=== PATIENT | male | born 1960 | race Two or more races ===

== ENCOUNTER 2023-01-06 18:09 | Emergency (ER) | payer OTHER ==
[~2023-01-06] VITALS: Ht 180.3 cm; Wt 79.8 kg
[2023-01-06] MEDS ORDERED: OMEPRAZOLE MAGN20 MG PO (18:27)
[2023-01-06] MEDS ORDERED: METFORMIN HCL500 M3 (18:27)
[2023-01-06 19:49] LABS: HEMATOCRIT 40.7 % (39.0-48.0); HEMOGLOBIN 13.3 g/dL (13-16.00); MEAN CELL VOLUME 80.6 fL (80.0-100.00); MEAN CORPUSCULAR HEMOGLOBIN 26.4 pg (27.00-32.0); MEAN CORPUSCULAR HGB CONC 32.8 g/dl (32.0-36.0); PLATELET COUNT 208 K/uL (150-450); RED BLOOD COUNT 5.05 M/uL (4.00-6.00); RED CELL DISTRIBUTION WIDTH 17.4 % (11.5-14.5)
[2023-01-06 19:53] LABS: URINE APPEARANCE Clear; URINE BILIRRUBIN Negative (NEGATIVE); URINE BLOOD Negative; URINE COLOR Yellow; URINE GLUCOSE Negative (NEGATIVE); URINE LEUKOCYTE Negative; URINE NITRATE Negative; URINE PROTEIN 30 (NEGATIVE); URINE UROBILINOGEN 0.2 E.U./dl
[2023-01-06 19:57] LABS: URINE BACTERIA 11.3 uL (0.0-1933); URINE EPITHELIAL CELLS 2.1 uL (0.0-38.8); URINE RBC 7.6 uL (0.0-20.8); URINE WBC 7.5 uL (0.0-23.2)
[2023-01-06 20:08] LABS: ALBUMIN 3.2 gm/dL (3.4-5.0); BILIRUBIN TOTAL 0.22 mg/dL (0.3-1.2); CREATININE SERUM 0.72 mg/dL (0.70-1.30); GFR 110.26; GLOBULINA 3.6 G/DL (2.4-3.5); POTASSIUM 3.86 mEq/L (3.5-5.1); TOTAL PROTEIN 6.8 gm/dL (6.4-8.2)
== END 2023-01-07 01:00 | disposition home or self-care (01) ==
LOC: ER 18:09
PROVIDERS: Emergency Medicine
DX: K52.9 Noninfective gastroenteritis and colitis, unspecified (principal); E11.9 Type 2 diabetes mellitus without complications; Z79.84 Long term (current) use of oral hypoglycemic drugs; E03.9 Hypothyroidism, unspecified; Z20.822 Contact with and (suspected) exposure to COVID-19

== ENCOUNTER 2024-07-18 17:11 | Emergency (ER) | payer OTHER ==
[~2024-07-18] VITALS: Ht 180.3 cm; Wt 72.6 kg
[~2024-07-18 17:11] MED LIST: METFORMIN HCL500 M3; OMEPRAZOLE MAGN20 MG PO
[2024-07-18] MEDS ORDERED: ONDANSETRON HCL 2 MG/ML VIAL IV ONE (18:45)
[2024-07-18] MEDS ORDERED: 0.9 % SODIUM CHLORIDE 500 ML IV ONE (18:45)
[2024-07-18] MEDS ORDERED: FAMOTIDINE/PF 20 MG/2 ML VIAL IV ONE (18:45)
[2024-07-18] MEDS ORDERED: KETOROLAC TROMETHAMINE 30 MG VIAL IV ONE (18:45)
[2024-07-18] MEDS ORDERED: FAMOTIDINE/PF 20 MG/2 ML VIAL ONE (18:52)
[2024-07-18] MEDS ORDERED: KETOROLAC TROMETHAMINE 30 MG VIAL ONE (18:52)
[2024-07-18] MEDS ORDERED: ONDANSETRON HCL 2 MG/ML VIAL ONE (18:52)
[2024-07-18 18:56] LABS: HEMATOCRIT 39.4 % (39.0-48.0); HEMOGLOBIN 13.3 g/dL (13-16.00); MEAN CELL VOLUME 84.5 fL (80.0-100.00); MEAN CORPUSCULAR HEMOGLOBIN 28.5 pg (27.00-32.0); MEAN CORPUSCULAR HGB CONC 33.7 g/dl (32.0-36.0); PLATELET COUNT 221 K/uL (150-450); RED BLOOD COUNT 4.66 M/uL (4.00-6.00); RED CELL DISTRIBUTION WIDTH 16.4 % (11.5-14.5)
[2024-07-18 19:17] LABS: INR 1.12; PARTIAL THROMBOPLASTIN TIME 27.9 SECONDS (22.0-34.0); PROTHROMBIN TIME 12.1 SECONDS (9.0-11.5)
[2024-07-18 19:21] LABS: ALBUMIN 3.4 gm/dL (3.4-5.0); BILIRUBIN TOTAL 0.48 mg/dL (0.3-1.2); CALCIUM 9.1 mg/dL (8.5-10.1); CREATININE SERUM 0.74 mg/dL (0.70-1.30); GFR 106.15; GLOBULINA 3.2 G/DL (2.4-3.5); POTASSIUM 4.26 mEq/L (3.5-5.1); TOTAL PROTEIN 6.6 gm/dL (6.4-8.2)
[2024-07-18 19:41] LABS: PH,URINE 5.5 (5.0-8.0); URINE APPEARANCE Clear; URINE BILIRRUBIN Negative (NEGATIVE); URINE BLOOD Small; URINE COLOR Yellow; URINE GLUCOSE Negative (NEGATIVE); URINE KETONE Negative (NEGATIVE); URINE LEUKOCYTE Trace; URINE NITRATE Negative; URINE PROTEIN 30 (NEGATIVE); URINE UROBILINOGEN 0.2 E.U./dl
[2024-07-18 19:44] LABS: URINE EPITHELIAL CELLS 14.5 uL (0.0-38.8); URINE RBC 77.6 uL (0.0-20.8); URINE WBC 35.5 uL (0.0-23.2)
[2024-07-18 19:45] LABS: URINE CAST 0.29 uL (0.0-1.40)
[2024-07-18] MEDS ORDERED: CEFTRIAXONE SODIUM 1,000 MG VIAL IV ONE (20:45)
[2024-07-18] MEDS ORDERED: TAMSULOSIN HCL 0.4 MG CAP PO ONE (20:45)
[2024-07-18] MEDS ORDERED: DUI500 PO (21:10)
[2024-07-18] MEDS ORDERED: ANALPRAM HC 2.530 GM RECTAL (21:10)
[2024-07-18] MEDS ORDERED: TAMS0.4C PO (21:10)
== END 2024-07-18 22:15 ==
LOC: ER 17:11
PROVIDERS: General Practice
DX: N21.0 Calculus in bladder (principal); N20.0 Calculus of kidney; K57.30 Diverticulosis of large intestine without perforation or abscess without bleeding; E11.9 Type 2 diabetes mellitus without complications; Z79.84 Long term (current) use of oral hypoglycemic drugs; I10 Essential (primary) hypertension

== ENCOUNTER 2025-01-26 11:32 | Day surgery (SDC) | payer OTHER ==
[~2025-01-26 11:32] MED LIST changes: +ANALPRAM HC 2.530 GM RECTAL; +DIPHENHYDRAMINE HCL 50 MG/ML VIAL 1ML IV ONE; +DUI500 PO; +MIDAZOLAM HCL 2 MG/2 ML VIAL IV ONE; +TAMS0.4C PO; +fentaNYL CITRATE 50 MCG/ML AMPUL IV PUSH ONE
== END 2025-01-26 12:45 | disposition home or self-care (01) ==
LOC: AMB-ENDOS 11:32
PROVIDERS: ATTEND Internal Medicine
DX: K63.5 Polyp of colon (principal); K57.30 Diverticulosis of large intestine without perforation or abscess without bleeding